=== PATIENT | male | born 1940 | race Caucasian/White ===

== ENCOUNTER 2017-08-11 11:00 | Inpatient (IN) | payer OTHER ==
[~2017-08-11] VITALS: Ht 167.6 cm; Wt 127.7 kg
[~2017-08-11 11:00] MED LIST: ALLOPURINOL100 MG PO; CELEXA10 MG PO; CLEOCIN150 MG PO; GLIPIZIDE5 MG PO; LEVEMIR FL100 UNIT/1 SC; NORVASC5 MG PO; NOVOLOG 10100 UNITS/ SC; ROCALTROL0.25 MCG PO; TRAZODONE HCL50 MG PO; VAPOR INHALER50 MG BOTH NARES
[2017-08-11 11:26] LABS: BASOPHIL (%) 0.2 % (0-1); EOSINOPHIL COUNT 0.4 K/uL (0-0.3); HEMATOCRIT 29.8 % (38.0-50.0); HEMOGLOBIN 9.3 G/DL (12.5-16.6); IMMATURE GRANULOCYTE (%) 0.6 % (0.0-0.7); LYMPHOCYTE (%) 11.4 % (15-42); LYMPHOCYTE COUNT 1.6 K/uL (1.0-2.8); MCH 31.8 PG (29.0-34.0); MCHC 31.2 G/DL (30.0-36.0); MCV 102.1 FL (86-99); MONOCYTE (%) 14.4 % (3-12); NEUTROPHIL (%) 70.4 % (45-76); NEUTROPHIL COUNT 9.6 K/uL (1.8-6.4); PLATELET COUNT 175 K/uL (156-360); RBC DIS.WIDTH-CV 13.9 % (11.8-14.6); RBC DIS.WIDTH-SD 52.1 % (39-53); RED BLOOD COUNT 2.92 M/uL (4.00-5.50); WHITE BLOOD COUNT 13.6 K/uL (4.1-10.2)
[2017-08-11 11:31] LABS: INTER. NORMALIZED RATIO 1.1
[2017-08-11 11:34] LABS: PTT 29.2 SEC (25-37)
[2017-08-11 11:35] LABS: CHLORIDE 104 mEq/L (99-109); POTASSIUM 5.4 mEq/L (3.7-5.4); SODIUM 140 mEq/L (136-147)
[2017-08-11 11:37] LABS: GLUCOSE 167 mg/dL (70-99)
[2017-08-11 11:40] LABS: CREATININE 3.5 mg/dL (0.6-1.3); GFR ESTIMATE (CALCULATED) 18 mL/min/ (58.99-99999)
[2017-08-11 11:41] LABS: UREA NITROGEN (BUN) 51 mg/dL (9-23)
[2017-08-11 11:47] LABS: TROP-I INTERPRETATION NEGATIVE; TROPONIN-I 0.03 ng/mL (0.0-0.30)
[2017-08-11] MEDS ORDERED: FUROSEMIDE20 MG PO (13:08)
[2017-08-11] MEDS ORDERED: VITAMIN D32000 UNI1 PO (13:08)
[2017-08-11] MEDS ORDERED: ASPIR 8181 M1 PO (13:08)
[2017-08-11] MEDS ORDERED: TRADJENTA5 MG PO (13:09)
[2017-08-11] MEDS ORDERED: CARVEDILOL6.25 MG PO (13:09)
[2017-08-11] MEDS ORDERED: GABAPENTIN100 MG PO (13:09)
[2017-08-11] MEDS ORDERED: PROAIR HFA8.5 GM IH (13:10)
[2017-08-11] MEDS ORDERED: LIPITOR80 MG PO (13:10)
[2017-08-11] MEDS ORDERED: PLAVIX75 MG PO (13:10)
[2017-08-11 19:37] VITALS: BP 116/72
[2017-08-11 19:43] LABS: TROP-I INTERPRETATION NEGATIVE; TROPONIN-I 0.03 ng/mL (0.0-0.30)
[2017-08-11 23:13] VITALS: BP 126/60
[2017-08-12] VITALS (10 sets, daily range): BP systolic 114–154; BP diastolic 54–86
[2017-08-12 03:08] LABS: TROP-I INTERPRETATION NEGATIVE; TROPONIN-I 0.02 ng/mL (0.0-0.30)
[2017-08-12 06:02] LABS: HEMATOCRIT 30.1 % (38.0-50.0); HEMOGLOBIN 9.2 G/DL (12.5-16.6); MCH 31.4 PG (29.0-34.0); MCHC 30.6 G/DL (30.0-36.0); MCV 102.7 FL (86-99); PLATELET COUNT 181 K/uL (156-360); RBC DIS.WIDTH-SD 53.1 % (39-53); RED BLOOD COUNT 2.93 M/uL (4.00-5.50); WHITE BLOOD COUNT 12.2 K/uL (4.1-10.2)
[2017-08-12 06:23] LABS: CHLORIDE 102 MEQ/L (99-109); CREATININE 3.7 MG/DL (0.6-1.3); GFR ESTIMATE (CALCULATED) 17 mL/min/ (58.99-99999); POTASSIUM 5.7 MEQ/L (3.7-5.4); SODIUM 139 MEQ/L (136-147); UREA NITROGEN (BUN) 57 mg/dL (9-23)
[2017-08-12 06:38] LABS: GLUCOSE 116 mg/dL (70-99)
[2017-08-12 15:06] LABS: BASE EXCESS 0.8 mEq/L (-3 to +3); BICARBONATE 28.2 mEq/L (22-26); CARBOXY HGB 1.5 % (0-5); METHEMOGLOBIN 1.2 % (0-1.5); PCO2 60 mm Hg (35-45); PO2 65 mm Hg (80-100); SITE LR; pH 7.28 (7.35-7.45)
[2017-08-12 15:07] LABS: COMMENTS - BLOOD GASES A+C+; DEVICE NC; O2 FLOW 2 L/MIN; TOTAL RESP RATE 24 resp/min
[2017-08-12 16:40] LABS: BASOPHIL (%) 0.3 % (0-1); EOSINOPHIL (%) 3.8 % (0-5); EOSINOPHIL COUNT 0.5 K/uL (0-0.3); HEMATOCRIT 29.5 % (38.0-50.0); HEMOGLOBIN 9.2 G/DL (12.5-16.6); IMMATURE GRANULOCYTE (%) 0.4 % (0.0-0.7); LYMPHOCYTE (%) 10.5 % (15-42); LYMPHOCYTE COUNT 1.2 K/uL (1.0-2.8); MCH 31.5 PG (29.0-34.0); MCHC 31.2 G/DL (30.0-36.0); MONOCYTE (%) 11.1 % (3-12); MONOCYTE COUNT 1.3 K/uL (0-0.8); NEUTROPHIL (%) 73.9 % (45-76); NEUTROPHIL COUNT 8.7 K/uL (1.8-6.4); PLATELET COUNT 180 K/uL (156-360); RBC DIS.WIDTH-CV 13.8 % (11.8-14.6); RED BLOOD COUNT 2.92 M/uL (4.00-5.50); WHITE BLOOD COUNT 11.8 K/uL (4.1-10.2)
[2017-08-12 16:56] LABS: ALBUMIN 3.4 G/DL (3.2-4.8); CHLORIDE 101 MEQ/L (99-109); MAGNESIUM 2.4 mg/dl (1.3-2.7); SODIUM 134 MEQ/L (136-147); TOTAL BILIRUBIN 0.6 MG/DL (0.0-1.0)
[2017-08-12 17:02] LABS: ALKALINE PHOSPHATASE 100 IU/L (3-129); ALT (GPT) 13 IU/L (3-49); AST (GOT) 15 IU/L (2-34); CREATININE 3.9 MG/DL (0.6-1.3); GFR ESTIMATE (CALCULATED) 16 mL/min/ (58.99-99999); TOTAL PROTEIN 6.1 G/DL (6.4-8.3); UREA NITROGEN (BUN) 60 mg/dL (9-23)
[2017-08-12 17:03] LABS: GLUCOSE 192 mg/dL (70-99)
[2017-08-12 17:07] LABS: HIGH-SENS C-REACTIVE PROTEIN > 8.00 MG/DL (0.02-0.20)
[2017-08-12 17:34] LABS: TROP-I INTERPRETATION NEGATIVE; TROPONIN-I 0.01 ng/mL (0.0-0.30)
[2017-08-12 21:13] LABS: APPEARANCE CLOUDY ((CLEAR)); BILIRUBIN NEGATIVE; BLOOD SMALL; COLOR YELLOW ((YELLOW)); GLUCOSE (STRIP) 50; KETONES NEGATIVE; LEUKOCYTES NEGATIVE; NITRITE NEGATIVE; PROTEIN (STRIP) 100; SPECIFIC GRAVITY 1.013 (1.000-1.030); UROBILINOGEN 0.2 MG/DL (0.2-1.0)
[2017-08-12 21:44] LABS: BACTERIA 3+ /HPF; EPITHELIAL CELLS 1+ /HPF; RED BLOOD CELLS 0-5 /HPF (0-5); UCUL ADDED? YES
[2017-08-12 21:45] LABS: AMORPHOUS URATES CRYSTALS 3+; COARSE GRANULAR CASTS 0-5 /LPF; MUCUS TRACE /LPF
[2017-08-13] VITALS (15 sets, daily range): BP systolic 128–171; BP diastolic 58–100
[2017-08-13 05:13] LABS: ALBUMIN 3.7 g/dL (3.2-4.8); CHLORIDE 101 mEq/L (99-109); POTASSIUM 5.3 mEq/L (3.7-5.4); SODIUM 139 mEq/L (136-147)
[2017-08-13 05:16] LABS: GLUCOSE 256 mg/dL (70-99); TOTAL PROTEIN 6.3 g/dL (6.4-8.3)
[2017-08-13 05:18] LABS: TOTAL BILIRUBIN 0.7 mg/dL (0.0-1.0)
[2017-08-13 05:19] LABS: ALKALINE PHOSPHATASE 134 IU/L (3-129); CREATININE 4.1 mg/dL (0.6-1.3); GFR ESTIMATE (CALCULATED) 15 mL/min/ (58.99-99999)
[2017-08-13 05:20] LABS: UREA NITROGEN (BUN) 64 mg/dL (9-23)
[2017-08-13 05:21] LABS: AST (GOT) 18 IU/L (2-34)
[2017-08-13 05:22] LABS: ALT (GPT) 18 IU/L (3-49)
[2017-08-13 05:58] LABS: BASE EXCESS -0.4 mEq/L (-3 to +3); BICARBONATE 26.9 mEq/L (22-26); CARBOXY HGB 1.4 % (0-5); METHEMOGLOBIN 1.1 % (0-1.5); PCO2 56 mm Hg (35-45)
[2017-08-13 05:59] LABS: COMMENTS - BLOOD GASES C+A+; DEVICE NC; O2 FLOW 3 L/MIN; PO2 80 mm Hg (80-100); SITE RR; pH 7.29 (7.35-7.45)
[2017-08-14] VITALS (23 sets, daily range): BP systolic 121–161; BP diastolic 45–78
[2017-08-14 04:51] LABS: BASOPHIL (%) 0.1 % (0-1); EOSINOPHIL (%) 0 % (0-5); HEMATOCRIT 29.8 % (38.0-50.0); HEMOGLOBIN 9.6 G/DL (12.5-16.6); IMMATURE GRANULOCYTE (%) 0.7 % (0.0-0.7); LYMPHOCYTE (%) 3.6 % (15-42); LYMPHOCYTE COUNT 0.5 K/uL (1.0-2.8); MCH 31.7 PG (29.0-34.0); MCHC 32.2 G/DL (30.0-36.0); MCV 98.3 FL (86-99); MONOCYTE (%) 2.5 % (3-12); MONOCYTE COUNT 0.4 K/uL (0-0.8); NEUTROPHIL (%) 93.1 % (45-76); NEUTROPHIL COUNT 13.5 K/uL (1.8-6.4); PLATELET COUNT 217 K/uL (156-360); RBC DIS.WIDTH-CV 13.4 % (11.8-14.6); RBC DIS.WIDTH-SD 48.9 % (39-53); RED BLOOD COUNT 3.03 M/uL (4.00-5.50); WHITE BLOOD COUNT 14.5 K/uL (4.1-10.2)
[2017-08-14 05:02] LABS: ALBUMIN 3.4 g/dL (3.2-4.8)
[2017-08-14 05:03] LABS: CHLORIDE 100 mEq/L (99-109); POTASSIUM 4.6 mEq/L (3.7-5.4); SODIUM 137 mEq/L (136-147)
[2017-08-14 05:05] LABS: GLUCOSE 343 mg/dL (70-99)
[2017-08-14 05:08] LABS: PHOSPHORUS 5.9 mg/dL (2.5-4.9)
[2017-08-14 05:09] LABS: CHLORIDE 102 mEq/L (99-109); CREATININE 4.2 mg/dL (0.6-1.3); GFR ESTIMATE (CALCULATED) 15 mL/min/ (58.99-99999); MAGNESIUM 2.2 mg/dL (1.3-2.7); POTASSIUM 4.7 mEq/L (3.7-5.4); SODIUM 138 mEq/L (136-147)
[2017-08-14 05:10] LABS: UREA NITROGEN (BUN) 77 mg/dL (9-23)
[2017-08-14 05:11] LABS: GLUCOSE 343 mg/dL (70-99); URIC ACID 6.4 mg/dL (3.1-9.2)
[2017-08-14 05:15] LABS: CREATININE 4.2 mg/dL (0.6-1.3); GFR ESTIMATE (CALCULATED) 15 mL/min/ (58.99-99999); UREA NITROGEN (BUN) 76 mg/dL (9-23)
[2017-08-14 05:17] LABS: BASE EXCESS 1.6 mEq/L (-3 to +3); BICARBONATE 29.4 mEq/L (22-26); CARBOXY HGB 1.3 % (0-5); METHEMOGLOBIN 1.4 % (0-1.5); PO2 73 mm Hg (80-100)
[2017-08-14 05:18] LABS: COMMENTS - BLOOD GASES C+A+; DEVICE NC; O2 FLOW 2 L/MIN; PCO2 64 mm Hg (35-45); SITE LR; pH 7.27 (7.35-7.45)
[2017-08-14 15:17] LABS: BASE EXCESS 0.2 mEq/L (-3 to +3); BICARBONATE 27.7 mEq/L (22-26); CARBOXY HGB 1.2 % (0-5); COMMENTS - BLOOD GASES A+C+; DEVICE NC; METHEMOGLOBIN 1.5 % (0-1.5); O2 FLOW 2 L/MIN; PCO2 59 mm Hg (35-45); PO2 63 mm Hg (80-100); SITE LR; pH 7.28 (7.35-7.45)
[2017-08-15] VITALS (24 sets, daily range): BP systolic 118–176; BP diastolic 51–88
[2017-08-15 05:37] LABS: BASOPHIL (%) 0.1 % (0-1); EOSINOPHIL (%) 0 % (0-5); IMMATURE GRANULOCYTE (%) 0.6 % (0.0-0.7); LYMPHOCYTE (%) 5.1 % (15-42); LYMPHOCYTE COUNT 0.9 K/uL (1.0-2.8); MCH 31.8 PG (29.0-34.0); MCHC 32.1 G/DL (30.0-36.0); MCV 98.9 FL (86-99); MONOCYTE (%) 6.5 % (3-12); MONOCYTE COUNT 1.2 K/uL (0-0.8); NEUTROPHIL (%) 87.7 % (45-76); NEUTROPHIL COUNT 15.9 K/uL (1.8-6.4); PLATELET COUNT 211 K/uL (156-360); RBC DIS.WIDTH-CV 13.4 % (11.8-14.6); RBC DIS.WIDTH-SD 49.2 % (39-53); RED BLOOD COUNT 2.83 M/uL (4.00-5.50); WHITE BLOOD COUNT 18.2 K/uL (4.1-10.2)
[2017-08-15 06:02] LABS: ALBUMIN 3.2 G/DL (3.2-4.8); CHLORIDE 100 MEQ/L (99-109); CREATININE 3.8 MG/DL (0.6-1.3); GFR ESTIMATE (CALCULATED) 17 mL/min/ (58.99-99999); GLUCOSE 266 mg/dL (70-99); PHOSPHORUS 4.9 mg/dL (2.5-4.9); POTASSIUM 4.3 MEQ/L (3.7-5.4); SODIUM 137 MEQ/L (136-147); UREA NITROGEN (BUN) 85 mg/dL (9-23)
[2017-08-16] VITALS (12 sets, daily range): BP systolic 0–167; BP diastolic 0–92
[2017-08-16 06:30] LABS: ALBUMIN 3.5 G/DL (3.2-4.8); CHLORIDE 100 MEQ/L (99-109); CREATININE 3.5 MG/DL (0.6-1.3); GFR ESTIMATE (CALCULATED) 18 mL/min/ (58.99-99999); GLUCOSE 236 mg/dL (70-99); PHOSPHORUS 4.4 mg/dL (2.5-4.9); POTASSIUM 4.9 MEQ/L (3.7-5.4); SODIUM 139 MEQ/L (136-147); UREA NITROGEN (BUN) 98 mg/dL (9-23)
[2017-08-17] VITALS (8 sets, daily range): BP systolic 128–195; BP diastolic 51–105
[2017-08-17 15:35] LABS: CHLORIDE 98 MEQ/L (99-109); CREATININE 3.8 MG/DL (0.6-1.3); GFR ESTIMATE (CALCULATED) 17 mL/min/ (58.99-99999); GLUCOSE 266 mg/dL (70-99); POTASSIUM 5.6 MEQ/L (3.7-5.4); SODIUM 136 MEQ/L (136-147)
[2017-08-17 15:36] LABS: UREA NITROGEN (BUN) 106 mg/dL (9-23)
[2017-08-17 16:23] LABS: URIC ACID 6.6 mg/dL (3.1-9.2)
[2017-08-18 03:58] VITALS: BP 141/60
[2017-08-18 06:39] LABS: HEMATOCRIT 31.5 % (38.0-50.0); HEMOGLOBIN 9.9 G/DL (12.5-16.6); MCH 30.7 PG (29.0-34.0); MCHC 31.4 G/DL (30.0-36.0); MCV 97.8 FL (86-99); PLATELET COUNT 256 K/uL (156-360); RBC DIS.WIDTH-CV 13.4 % (11.8-14.6); RBC DIS.WIDTH-SD 48.2 % (39-53); RED BLOOD COUNT 3.22 M/uL (4.00-5.50); WHITE BLOOD COUNT 17.6 K/uL (4.1-10.2)
[2017-08-18 08:04] LABS: ALBUMIN 3.3 G/DL (3.2-4.8); CHLORIDE 100 MEQ/L (99-109); CREATININE 3.8 MG/DL (0.6-1.3); GFR ESTIMATE (CALCULATED) 17 mL/min/ (58.99-99999); GLUCOSE 144 mg/dL (70-99); PHOSPHORUS 4.1 mg/dL (2.5-4.9); POTASSIUM 5.2 MEQ/L (3.7-5.4); SODIUM 141 MEQ/L (136-147)
[2017-08-18 08:06] LABS: UREA NITROGEN (BUN) 104 mg/dL (9-23)
[2017-08-18 08:24] VITALS: BP 151/67
[2017-08-18 13:00] VITALS: BP 140/67
[2017-08-18 16:39] VITALS: BP 129/62
[2017-08-18 19:32] VITALS: BP 128/52
[2017-08-18 23:41] VITALS: BP 147/61
[2017-08-19 04:10] VITALS: BP 142/71
[2017-08-19 07:40] LABS: ALBUMIN 3.3 G/DL (3.2-4.8); CHLORIDE 100 MEQ/L (99-109); CREATININE 3.6 MG/DL (0.6-1.3); GFR ESTIMATE (CALCULATED) 18 mL/min/ (58.99-99999); PHOSPHORUS 3.3 mg/dL (2.5-4.9); POTASSIUM 5.7 MEQ/L (3.7-5.4); SODIUM 140 MEQ/L (136-147)
[2017-08-19 07:43] LABS: GLUCOSE 236 mg/dL (70-99); UREA NITROGEN (BUN) 107 mg/dL (9-23)
[2017-08-19 08:00] VITALS: BP 144/68
[2017-08-19 10:38] LABS: HEMOGLOBIN A1c (GLYCOHEMOGLOB) 9.1 % (Below 5.7)
[2017-08-19 15:57] VITALS: BP 140/78
[2017-08-19 20:07] VITALS: BP 137/66
[2017-08-19 23:51] VITALS: BP 145/65
[2017-08-20 03:25] VITALS: BP 145/69
[2017-08-20 06:44] LABS: HEMATOCRIT 30.5 % (38.0-50.0); HEMOGLOBIN 9.7 G/DL (12.5-16.6); MCH 31.1 PG (29.0-34.0); MCHC 31.8 G/DL (30.0-36.0); MCV 97.8 FL (86-99); PLATELET COUNT 245 K/uL (156-360); RBC DIS.WIDTH-CV 13.4 % (11.8-14.6); RBC DIS.WIDTH-SD 47.7 % (39-53); RED BLOOD COUNT 3.12 M/uL (4.00-5.50); WHITE BLOOD COUNT 21.5 K/uL (4.1-10.2)
[2017-08-20 07:10] LABS: ALBUMIN 3.1 G/DL (3.2-4.8); CHLORIDE 103 MEQ/L (99-109); CREATININE 3.3 MG/DL (0.6-1.3); GFR ESTIMATE (CALCULATED) 20 mL/min/ (58.99-99999); GLUCOSE 183 mg/dL (70-99); PHOSPHORUS 3.4 mg/dL (2.5-4.9); POTASSIUM 5.2 MEQ/L (3.7-5.4); SODIUM 138 MEQ/L (136-147); UREA NITROGEN (BUN) 96 mg/dL (9-23)
[2017-08-20 08:19] VITALS: BP 142/76
[2017-08-20] MEDS ORDERED: RENVELA800 MG PO (11:34)
[2017-08-20] MEDS ORDERED: FUROSEMIDE80 MG PO (11:35)
[2017-08-20] MEDS ORDERED: PREDNISONE10 MG PO (11:35)
[2017-08-20] MEDS ORDERED: MUCINEX600 MG PO (11:35)
[2017-08-20] MEDS ORDERED: LEVEMIR100 UNIT/2 SC (11:35)
[2017-08-20] MEDS ORDERED: LEVEMIR FL100 UNIT/1 SC (12:31)
[2017-08-20] MEDS ORDERED: AERONEB GO NEB1 EACH MC (15:12)
[2017-08-20] MEDS ORDERED: DUONEB 2.5-0.5 M3 ML AEROSOL (15:12)
== END 2017-08-20 18:54 | disposition home health service (06) | DRG 291 ==
LOC: EME 11:00 → EDOF 12:38 → 5SOUTH 12:38 → ENRESERV 12:39 → 5SOUTH 19:11 → ENRESERV 08-12 16:37 → 4WEST 08-12 17:05 → ENRESERV 08-17 13:25 → 5SOUTH 08-17 16:45
PROVIDERS: Emergency Medicine; Family Medicine; Hospitalist; Internal Medicine; Internal Medicine Critical Care Medicine; Internal Medicine Nephrology; Physician Assistant Medical; Specialist
PROC: 5A09357 Assistance with Respiratory Ventilation, Less than 24 Consecutive Hours, Continuous Positive Airway Pressure (ICD-10-PCS; principal; 2017-08-13)
DX: I13.2 Hypertensive heart and chronic kidney disease with heart failure and with stage 5 chronic kidney disease, or end stage renal disease (principal); I50.32 Chronic diastolic (congestive) heart failure; E11.22 Type 2 diabetes mellitus with diabetic chronic kidney disease; N18.4 Chronic kidney disease, stage 4 (severe); J18.9 Pneumonia, unspecified organism; J44.0 Chronic obstructive pulmonary disease with (acute) lower respiratory infection; J20.9 Acute bronchitis, unspecified; J44.1 Chronic obstructive pulmonary disease with (acute) exacerbation; J96.21 Acute and chronic respiratory failure with hypoxia; J96.22 Acute and chronic respiratory failure with hypercapnia; E87.5 Hyperkalemia; N17.9 Acute kidney failure, unspecified; E87.4 Mixed disorder of acid-base balance; N25.81 Secondary hyperparathyroidism of renal origin; D63.1 Anemia in chronic kidney disease; E11.40 Type 2 diabetes mellitus with diabetic neuropathy, unspecified; I25.10 Atherosclerotic heart disease of native coronary artery without angina pectoris; E66.2 Morbid (severe) obesity with alveolar hypoventilation; E78.5 Hyperlipidemia, unspecified; I27.20 Pulmonary hypertension, unspecified; F32.9 Major depressive disorder, single episode, unspecified; F41.9 Anxiety disorder, unspecified; E55.9 Vitamin D deficiency, unspecified; K59.00 Constipation, unspecified; M10.9 Gout, unspecified; R62.7 Adult failure to thrive; Z87.891 Personal history of nicotine dependence; I25.2 Old myocardial infarction; Z99.81 Dependence on supplemental oxygen; Z86.73 Personal history of transient ischemic attack (TIA), and cerebral infarction without residual deficits; Z91.19 Patient's noncompliance with other medical treatment and regimen; Z95.5 Presence of coronary angioplasty implant and graft
CPT/HCPCS: 36600; 71045; 80048; 80048 91; 80053; 80069; 81003; 82803; 82948; 83036; 83605; 83735; 83880; 84100; 84132 91; 84145 90; 84484; 84550; 85025; 85027; 85610; 85730; 86141; 87040; 87070; 87086; 87205; 87502; 87641; 93005; 93306; 93970; 94640; 94640 76; 94660; 94667; 94668; 94799; 97530 GO; 99202; 99281; 99285; J0456; J0696; J1644; J1815; J1940; J2930; J7512; P9047